=== PATIENT | male | born 1965 | race Caucasian/White ===

== ENCOUNTER 2019-05-21 11:47 | Day surgery (SDC) | payer BC ==
[~2019-05-21] VITALS: Ht 167.6 cm; Wt 103.9 kg
[~2019-05-21 11:47] MED LIST: LAMO25 PO; METF500 PO; METPHE20 PO; TOPAMAX; WELLBUTRIN
--- NOTE | 2019-05-21 12:18 | NUR ---
History, Chart, Medications and Allergies reviewed before start of procedure. Patient confirms NPO status and agrees with scheduled surgery. Pre-Op teaching done. Pt verbalizes understanding. Patient reports completing Chlorhexadine shower X2 prior to admission to hospital. Lungs clear T/O to Auscultation.
--- NOTE | 2019-05-21 17:27 | NUR ---
PT TO SURGICAL FLOOR PT ARRIVED FROM OR TO SURGICAL FLOOR AT 1715 TODAY. POD 0 S/P RIGHT TKA. A/OX4, VSS, AND DENIES PAIN. HAS SENSATION T/O AND ABLE TO WIGGLE TOES. EBONI WRAP AND POLAR PAC IN PLACE, NO DRAINAGE NOTED. SCD'S AND OLGA'S BLE. SPOUSE AT BEDSIDE AND CALL LIGHT WITHIN REACH.
--- NOTE | 2019-05-21 18:56 | NUR ---
SHIFT SUMMARY POD 0 S/P RIGHT TKA. PT A&O W/ VSS. DRESSING TO RIGHT KNEE C/D/I . TOLERATING BITES OF DINNER TRAY AND DRINKING FLUIDS. REPORTS HAVING SENSATION T/O, ABLE TO WIGGLE TOES. AT BEDSIDE AND CALL LIGHT WITHIN REACH.
--- NOTE | 2019-05-22 00:27 | NUR ---
ASSUMED CARE OF PT. PT RESTING IN BED, RESP E/U, NO DISTRESS NOTED AT THIS TIME. WILL CONT TO MONITOR AND TX PER ORDERS.
[2019-05-22 04:43] LABS: BASOPHILS ABSOLUTE AUTO 0.04 K/mm3 (0.00-0.23); BASOPHILS PERCENT AUTO 0 % (0-2); EOSINOPHILS ABSOLUTE AUTO 0.08 K/mm3 (0.00-0.68); EOSINOPHILS PERCENT AUTO 1 % (0-6); Hematocrit 42.5 % (37.0-53.0); Hemoglobin 14.4 g/dL (13.5-17.5); IMMATURE GRAN ABSOLUTE AUTO 0.06 K/mm3 (0.00-0.10); IMMATURE GRAN PERCENT AUTO 1 % (0-1); LYMPHOCYTES ABSOLUTE AUTO 1.26 K/mm3 (0.84-5.20); LYMPHOCYTES PERCENT AUTO 12 % (21-46); MONOCYTES ABSOLUTE AUTO 0.89 K/mm3 (0.16-1.47); MONOCYTES PERCENT AUTO 9 % (4-13); Mean Corpuscular HGB Conc 33.9 g/dL (31.5-36.5); Mean Corpuscular Volume 92 fL (80-100); Mean Platelet Volume 9.2 fL (9.1-12.4); NEUTROPHILS ABSOLUTE AUTO 8.02 K/mm3 (1.96-9.15); NEUTROPHILS PERCENT AUTO 77 % (41-73); Platelet Count 284 K/mm3 (150-400); RDW Coefficient Variation 12.4 % (11.7-14.2); RDW Standard Deviation 41.3 fL (35.1-46.3); Red Blood Cell Count 4.64 M/mm3 (4.30-5.90); White Blood Cell Count 10.35 K/mm3 (4.00-11.30)
[2019-05-22 04:57] LABS: Anion Gap 8 mmol/L (6-16); Blood Urea Nitrogen 21 mg/dL (8-24); Bun/Creatinine Ratio 24.6 (12.0-20.0); CO2, Blood 27 mmol/L (21-32); Calcium, Blood 8.7 mg/dL (8.5-10.1); Chloride, Blood 104 mmol/L (98-108); Creatinine, Blood 0.85 mg/dL (0.60-1.20); Glomerular Filtration Rate >60 (60-); Glucose, Blood 129 mg/dL (70-99); Magnesium, Blood 1.9 mg/dL (1.6-2.4); Potassium, Blood 4.3 mmol/L (3.5-5.5); Sodium, Blood 139 mmol/L (136-145)
--- NOTE | 2019-05-22 06:38 | NUR ---
POD 1 S/P R TKA. PT VSS T/O NIGHT. DRESSING CDI, CMS INTACT. PAIN MGD PER EMAR W/REP RELIEF. PT FOUZIA REG PO, NO C/O N/V, IS VOIDING URINE W/O DIFFICULTY. PT AMB IN HALLS SEVERAL TIMES TONIGHT W/FWW+SBA. FOUZIA WELL. PT USING CALL LIGHT FOR ASSISTANCE, WILL CONT TO MONITOR UNTIL REP GIVEN TO ONCOMING RN.
[2019-05-22] MEDS ORDERED: ASPI325 PO (08:37)
[2019-05-22] MEDS ORDERED: PROM25 PO (08:38)
[2019-05-22] MEDS ORDERED: ROXICODONE5 MG PO (08:38)
[2019-05-22] MEDS ORDERED: BACTRIM DS TAB1 EACH PO (08:38)
--- NOTE | 2019-05-22 14:24 | NUR ---
DISCHARGE PACKET PRINTED AND EDUCATION GIVEN. PT REPORTS ALREADY HAS SCRIPTS. LEFT UNIT VIA WHEELCHAIR WITH MAURI DURBIN.
--- NOTE | 2019-05-22 14:25 | NUR ---
DISCHARGED AT ABOUT 1410
== END 2019-05-22 13:33 | disposition home or self-care (01) ==
LOC: ORSCMMR 11:47 → ORD 13:30 → ORSCMMR 13:30 → SURS 17:11 → ORSCMMR 05-22 13:33
PROVIDERS: Orthopaedic Surgery
PROC: 0SRC0J9 Replacement of Right Knee Joint with Synthetic Substitute, Cemented, Open Approach (ICD-10-PCS; principal; 2019-05-21 13:30)
PROC: 0SCC0ZZ Extirpation of Matter from Right Knee Joint, Open Approach (ICD-10-PCS; principal; 2019-05-21 13:30)
PROC: 8E0YXBZ Computer Assisted Procedure of Lower Extremity (ICD-10-PCS; principal; 2019-05-21 13:30)
DX: M17.11 Unilateral primary osteoarthritis, right knee (principal); Q74.1 Congenital malformation of knee; J45.909 Unspecified asthma, uncomplicated; G47.33 Obstructive sleep apnea (adult) (pediatric); E66.01 Morbid (severe) obesity due to excess calories; Z68.37 Body mass index [BMI] 37.0-37.9, adult
CPT/HCPCS: 36415; 73560-RT; 80048; 83735; 85025; 88300; 97110; 97116; 97162; 97530; C1713; C1776; J0171; J0690; J0735; J1170; J1885; J2250; J2704; J2795; J3010; J3370; J7120

== ENCOUNTER 2021-04-13 08:39 | Day surgery (SDC) | payer BC ==
[~2021-04-13] VITALS: Ht 167.6 cm; Wt 100.2 kg
[~2021-04-13 08:39] MED LIST changes: +ASPI325 PO; +BACTRIM DS TAB1 EACH PO; +CLOBETASOL PRO118 ML TOP; +HYDROCHLOROTHIA25 MG PO; +LAMO100 PO; +PROM25 PO; +Prinivil10 MG PO; +RITALIN PO; +ROXICODONE5 MG PO
--- NOTE | 2021-04-13 17:58 | NUR ---
SPINAL/MOBILITY PT IS JUST NOW ABLE TO LIFT NON-SURGICAL LEG. ABLE TO PUMP ANKLES/FEET OF SURGICAL LEG & LIFT LEG APPROX 1 IN OF BED. DENIES PAIN.
--- NOTE | 2021-04-13 19:21 | NUR ---
SHIFT SUMMARY PT'S SPINAL WORE OFF END OF SHIFT. WAS ABLE TO AMBULATE TO BATHROOM & VOID. EATING, DRINKING WELL. PT PLANS TO AMBULATE IN HALLWAY AFTER PAIN MEDS TAKE EFFECT.
[2021-04-14 04:11] LABS: BASOPHILS ABSOLUTE AUTO 0.02 K/mm3 (0.00-0.23); BASOPHILS PERCENT AUTO 0 % (0-2); EOSINOPHILS ABSOLUTE AUTO 0.01 K/mm3 (0.00-0.68); EOSINOPHILS PERCENT AUTO 0 % (0-6); Hematocrit 42.2 % (37.0-53.0); Hemoglobin 14.8 g/dL (13.5-17.5); IMMATURE GRAN PERCENT AUTO 1 % (0-1); LYMPHOCYTES ABSOLUTE AUTO 1.05 K/mm3 (0.84-5.20); LYMPHOCYTES PERCENT AUTO 6 % (21-46); MONOCYTES ABSOLUTE AUTO 0.96 K/mm3 (0.16-1.47); MONOCYTES PERCENT AUTO 6 % (4-13); Mean Corpuscular HGB 31.9 pg (26.0-34.0); Mean Corpuscular HGB Conc 35.1 g/dL (31.5-36.5); Mean Corpuscular Volume 91 fL (80-100); Mean Platelet Volume 9.8 fL (9.1-12.4); NEUTROPHILS ABSOLUTE AUTO 14.36 K/mm3 (1.96-9.15); NEUTROPHILS PERCENT AUTO 87 % (41-73); Platelet Count 316 K/mm3 (150-400); RDW Coefficient Variation 11.8 % (11.7-14.2); RDW Standard Deviation 39.1 fL (35.1-46.3); Red Blood Cell Count 4.64 M/mm3 (4.30-5.90)
[2021-04-14 04:33] LABS: Anion Gap 6 mmol/L (6-16); Blood Urea Nitrogen 26 mg/dL (8-24); Bun/Creatinine Ratio 35.9 (12.0-20.0); CO2, Blood 27 mmol/L (21-32); Calcium, Blood 8.5 mg/dL (8.5-10.1); Chloride, Blood 105 mmol/L (98-108); Creatinine, Blood 0.73 mg/dL (0.60-1.20); Glomerular Filtration Rate >60 (60-); Glucose, Blood 186 mg/dL (70-99); Magnesium, Blood 2.3 mg/dL (1.6-2.4); Potassium, Blood 4.4 mmol/L (3.5-5.5); Sodium, Blood 138 mmol/L (136-145)
--- NOTE | 2021-04-14 06:37 | NUR ---
PT IS A/OX3. ABLE TO MAKE HIS NEEDS KNOWN. IN GOOD SPIRITS. PLEASANT AND COOPERATIVE WITH STAFF AND HIS CARE. NO EVENTS OVER NIGHT. AMBULATED IN HALLS X2 WITH FWW, GAIT BELT AND SBA. RT KNEE BULKY EBONI WRAP DRESSING IS CDI. BILAT TEDS IN PLACE. WHEN IN CHAIR/BED, HAS CALF SCD'D AND POLAR PACK IN PLACE. HAD SPINAL W/SURGERY. NO NUMBNESS/TINGLING TO LLE. IS ABLE TO MOVE LLE W/O ANY DIFFICULTY. DENIED ANY N/V. BT'S POS X4. HAD BM DURING NIGHT. VOIDS W/O DIFFICULTY. TOLERATING REG DIET WELL. GOOD APPETITE. HAD ICE CREAM AND SNACKS DURING NIGHT. NO N/V. PT WANTS TO GO HOME TODAY AFTER WORKING W/PHYSICAL THERAPY.
[2021-04-14] MEDS ORDERED: SULTRIDS PO (08:06)
[2021-04-14] MEDS ORDERED: Aspir 8181 MG PO (08:06)
[2021-04-14] MEDS ORDERED: OXYC5 PO (08:06)
--- NOTE | 2021-04-14 09:41 | NUR ---
DISCHARGE INSTRUCTIONS GIVEN TO PATIENT AT THIS TIME. PATIENT WAS CLEARED BY PT. DRESSING TO LEFT KNEE THAT DR ROMO CHANGED THIS AM CDI. DRESSING SUPPLIES SENT HOME WITH PATIENT. NO SIGNS OR SYMPTOMS ACUTE DISTRESS NOTED. NO COMPLAINTS OF PAIN OR NAUSEA VOICED. WAITING ON RIDE FROM . ALL BELONGINGS PACKED UP.
== END 2021-04-14 10:06 | disposition home or self-care (01) ==
LOC: ORSCMMR 08:39 → ORD 10:45 → SURS 14:25 → ORSCMMR 14:25 → SURS 04-14 10:06 → ORSCMMR 04-14 10:06
PROVIDERS: Orthopaedic Surgery
PROC: 0SRD0J9 Replacement of Left Knee Joint with Synthetic Substitute, Cemented, Open Approach (ICD-10-PCS; principal; 2021-04-13 10:45)
PROC: 8E0YXBZ Computer Assisted Procedure of Lower Extremity (ICD-10-PCS; principal; 2021-04-13 10:45)
DX: M17.12 Unilateral primary osteoarthritis, left knee (principal); I10 Essential (primary) hypertension; J45.909 Unspecified asthma, uncomplicated; G47.33 Obstructive sleep apnea (adult) (pediatric); E66.9 Obesity, unspecified; Z68.35 Body mass index [BMI] 35.0-35.9, adult; Z79.899 Other long term (current) drug therapy
CPT/HCPCS: 36415; 73560-LT; 80048; 83735; 85025; 97110; 97116; 97162; A9270; C1713; C1776; J0171; J0690; J0735; J1100; J1885; J2250; J2405; J2704; J2795; J3010; J3370; J7120

== ENCOUNTER 2021-07-11 12:15 | Day surgery (SDC) | payer BC ==
[~2021-07-11] VITALS: Ht 167.6 cm; Wt 98.1 kg
[~2021-07-11 12:15] MED LIST changes: +Aspir 8181 MG PO; +OXYC5 PO; +SULTRIDS PO
[2021-07-11] MEDS ORDERED: TRAZ100 PO (13:42)
--- NOTE | 2021-07-11 15:01 | NUR ---
07/11/21 1500 Myriam Silva LATE ENTRY: 1452 REPORT IS GIVEN TO [facility].TCR.
== END 2021-07-11 15:20 | disposition home or self-care (01) ==
LOC: ORSCSDS 12:15
PROVIDERS: Orthopaedic Surgery
PROC: 0SNDXZZ Release Left Knee Joint, External Approach (ICD-10-PCS; principal; 2021-07-11 13:15)
DX: T84.82XD Fibrosis due to internal orthopedic prosthetic devices, implants and grafts, subsequent encounter (principal); I10 Essential (primary) hypertension; E66.9 Obesity, unspecified; Z68.35 Body mass index [BMI] 35.0-35.9, adult; Z79.899 Other long term (current) drug therapy
CPT/HCPCS: A9270; J0330; J2250; J2704; J3010; J7120

== ENCOUNTER 2023-06-15 08:03 | Day surgery (SDC) | payer OTHER ==
[~2023-06-15] VITALS: Ht 167.6 cm; Wt 96.7 kg
[2023-06-15] VITALS (10 sets, daily range): BP systolic 108–151; BP diastolic 67–102
[~2023-06-15 08:03] MED LIST changes: +AMLO10 PO; +TRAZ100 PO
--- NOTE | 2023-06-15 09:28 | NUR ---
History, Chart, Medications and Allergies reviewed before start of procedure. Lungs clear T/O to Auscultation. Patient confirms NPO status and agrees with scheduled surgery. Pre-Op teaching done. Pt verbalizes understanding. Patient reports completing Chlorhexadine shower X2 prior to admission to hospital.
--- NOTE | 2023-06-15 13:25 | NUR ---
Discharge instructions reviewed with patient. Patient verbalizes understanding. Copy given to patient to take home. Prescription placed electronically. Patient States Post-Procedure ride home has been arranged. Discharged via wheelchair to private car for ride home.
--- NOTE | 2023-06-18 08:49 | NUR ---
06/18/23 0849 Rachna Sue VERIFICATIONS: EDIT CHART.
== END 2023-06-15 13:30 | disposition home or self-care (01) ==
LOC: ORSCMMR 08:03 → ORD 09:30 → ORSCMMR 13:30
PROVIDERS: Surgery
PROC: 8E0W4CZ Robotic Assisted Procedure of Trunk Region, Percutaneous Endoscopic Approach (ICD-10-PCS; principal; 2023-06-15 09:30)
PROC: 0YU64JZ Supplement Left Inguinal Region with Synthetic Substitute, Percutaneous Endoscopic Approach (ICD-10-PCS; principal; 2023-06-15 09:30)
PROC: 0WQF0ZZ Repair Abdominal Wall, Open Approach (ICD-10-PCS; principal; 2023-06-15 09:30)
DX: K40.90 Unilateral inguinal hernia, without obstruction or gangrene, not specified as recurrent (principal); K42.9 Umbilical hernia without obstruction or gangrene; D17.6 Benign lipomatous neoplasm of spermatic cord; I10 Essential (primary) hypertension; Z68.34 Body mass index [BMI] 34.0-34.9, adult; Z79.899 Other long term (current) drug therapy
CPT/HCPCS: A9270; C1781; J0690; J1100; J2250; J2371; J2405; J2704; J3010; J7120

== ENCOUNTER 2024-02-19 06:59 | Day surgery (SDC) | payer BC ==
[~2024-02-19] VITALS: Ht 165.1 cm; Wt 98.8 kg
[2024-02-19] VITALS (14 sets, daily range): BP systolic 93–130; BP diastolic 59–85
[~2024-02-19 06:59] MED LIST changes: +Lactated Ringer's 1,000 ML IV SCH
--- NOTE | 2024-02-19 07:38 | NUR ---
PT TO [facility] FOR COLONOSCOPY. PT HERE WITH , WILL BE RIDE HOME. PLAN OF CARE DISCUSSED. CHART REVIEWED.
[2024-02-19] MEDS ORDERED: propofoL 20 ML IV ONE (08:09)
--- NOTE | 2024-02-19 08:25 | NUR ---
02/19/24 0825 Lois Puga HISTORY, CHART, MEDICATIONS AND ALLERGIES REVIEWED BEFORE START OF PROCEDURE. PATIENT CONFIRMS NPO STATUS AND AGREES WITH SCHEDULED PROCEDURE. 3-LEAD EKG REVIEWED WITH PHYSICIAN PRIOR TO START OF PROCEDURE. MONITOR INTACT WITH CONTINUOUS PULSE OXIMETRY,CAPNOGRAPHY, 3-LEAD EKG, INTERMITTENT BP. SUPPLEMENTAL O2 TO BE TITRATED THROUGHOUT PROCEDURE TO MAINTAIN O2 SATURATION ABOVE 90%. PATIENT DETERMINED TO BE ASA APPROPRIATE FOR PROPOFOL SEDATION PRIOR TO START OF PROCEDURE BY
--- NOTE | 2024-02-19 08:42 | NUR ---
REPORT RECEIVED FROM CEFERINO KRISHNAMURTHY. VSS. PT ON RA. PT A&OX4. PT ABLE TO REPOSITION SELF IN BED. PT REQUESTING PO FLUIDS AND TOLERATING THEM WELL. PT DENIES PAIN, NAUSEA OR OTHER DISCOMFORTS.
--- NOTE | 2024-02-19 09:01 | NUR ---
Patient up to Ambulate independently. Gait steady. VSS AND CONSISTENT WITH PT BASELINE. PT HAS NO COMPLAINTS AND VERBALIZES READINESS TO GO HOME. Discharge instructions reviewed with patient AND HIS SPOUSE . Patient verbalizes understanding. Copy given to patient to take home. Patient States Post-Procedure ride home has been arranged. Discharged via wheelchair to private car for ride home. PT BELONGINGS RETURNED TO PT.
== END 2024-02-19 09:03 | disposition home or self-care (01) ==
LOC: ORSCMMR 06:59 → ORD 08:00 → ORSCMMR 08:00
PROVIDERS: Internal Medicine Gastroenterology
PROC: 0DBN8ZX Excision of Sigmoid Colon, Via Natural or Artificial Opening Endoscopic, Diagnostic (ICD-10-PCS; principal; 2024-02-19 08:00)
DX: Z12.11 Encounter for screening for malignant neoplasm of colon (principal); Z86.010 Personal history of colon polyps; K63.5 Polyp of colon; K57.30 Diverticulosis of large intestine without perforation or abscess without bleeding; F99 Mental disorder, not otherwise specified; F39 Unspecified mood [affective] disorder; I10 Essential (primary) hypertension; Z87.19 Personal history of other diseases of the digestive system; Z79.899 Other long term (current) drug therapy
CPT/HCPCS: 88305; J2704; J7120

== ENCOUNTER 2024-12-07 17:01 | Emergency (ER) | payer OTHER ==
[~2024-12-07] VITALS: Ht 165.1 cm; Wt 97.5 kg
[~2024-12-07 17:01] MED LIST changes: -Lactated Ringer's 1,000 ML IV SCH
[2024-12-07 17:21] VITALS: BP 144/88
[2024-12-07] MEDS ORDERED: Amoxicillin/Clavulanate K 875 MG Tab PO ONE (17:30)
[2024-12-07] MEDS ORDERED: AMOCLA875 PO (17:42)
== END 2024-12-07 17:57 | disposition home or self-care (01) ==
LOC: ER 17:01
DX: H66.93 Otitis media, unspecified, bilateral (principal); J02.0 Streptococcal pharyngitis; Z88.8 Allergy status to other drugs, medicaments and biological substances; Z79.899 Other long term (current) drug therapy
CPT/HCPCS: 99282; A9270